=== PATIENT | male | born 1985 | race Two or more races ===

== ENCOUNTER 2018-11-20 21:42 | Emergency (ER) | payer SELFPAY ==
[~2018-11-20] VITALS: Ht 177.8 cm; Wt 74.8 kg
[2018-11-20] MEDS ORDERED: ADVIL200 M2 ORAL (21:54)
[2018-11-20 21:59] VITALS: BP 109/51
--- NOTE | 2018-11-20 22:13 | Emergency Room Report ---
History of Present Illness General Chief Complaint: Fever Source: Patient Present Illness HPI Is a 33-year-old male with no past medical history. He presents with chief complaint of fever. He had fever on and off for the last 2 days. Also with nonproductive cough. [place] weak. His been taking Advil for this. No nausea no vomiting but decreased appetite. No diarrhea. He came in today because now her prior to arrival, fever spiked to 106. He took 2 Advil. He said fever broke cousin of it. No nausea no vomiting. Mild cough. Nonproductive in nature. Allergies: Coded Allergies: No Known Allergies (Unverified , 11/20/18) Patient History Past Medical History: none, see triage record, old chart reviewed Past Surgical History: none Pertinent Family History: none Social History: Denies: smoking Immunizations: other Reviewed Nursing Documentation: PMH: Agreed; PSxH: Agreed Nursing Documentation-PMH Past Medical History: No Stated History Review of Systems Constitutional: Reports: sweats, fever, malaise, weakness Eye: Denies: eye pain, blurred vision ENT: Denies: ear pain, nose congestion, throat swelling Respiratory: Reports: cough; Denies: shortness of breath Cardiovascular: Denies: chest pain, palpitations Gastrointestinal: Denies: abdominal pain, diarrhea, nausea, vomiting Musculoskeletal: Denies: back pain, joint pain Skin: Denies: rash Neurological: Denies: headache, numbness Endocrine: Denies: increased thirst, increased urine Hematologic/Lymphatic: Denies: easy bruising All Other Systems: negative except mentioned in HPI Physical Exam Vital Signs Date Time Temp Pulse Resp B/P (MAP) Pulse Ox O2 Delivery O2 Flow Rate FiO2 11/20/18 21:49 100.2 106 19 109/51 96 Room Air vitals with fever Sp02 EP Interpretation: reviewed, normal General Appearance: well appearing, no apparent distress, alert Head: normocephalic, atraumatic Eyes: bilateral eye PERRL, bilateral eye EOMI ENT: hearing grossly normal, normal pharynx Neck: full range of motion, supple, no meningismus Respiratory: chest non-tender, lungs clear, normal breath sounds Cardiovascular #1: regular rate, rhythm, no murmur Gastrointestinal: normal bowel sounds, non tender, no mass, no organomegaly, no bruit, non-distended Musculoskeletal: back normal, gait/station normal, normal range of motion Psychiatric: mood/affect normal Skin: warm/dry Medical Decision Making Diagnostic Impression: Primary Impression: Influenza A ER Course Patient presents with fever and myalgia for lasts 48 hours. Labs unremarkable except for influenza. Patient felt better now. No evidence of bacterial infection. Notice any sepsis or pneumonia. He is otherwise healthy no other risk factor. He is outside the window for Tamiflu. Chest X-Ray Diagnostic Results Chest X-Ray Diagnostic Results : Chest X-Ray Ordered: Yes Indication: Shortness of Breath EP Interpretation: Yes Interpretation: no consolidation, no effusion, no pneumothorax Impression: No acute disease Electronically Signed by: Wilber Yates MD Last Vital Signs Date Time Temp Pulse Resp B/P (MAP) Pulse Ox O2 Delivery O2 Flow Rate FiO2 11/20/18 21:59 100.2 19 109/51 96 Room Air 11/20/18 21:59 106 Status: improved Disposition: HOME, SELF-CARE Condition: Stable Scripts Oseltamivir Phosphate (Tamiflu) 75 Mg Capsule 75 MG ORAL TWICE A DAY, #10 CAP Prov: Wilber Yates MD 11/20/18 Additional Instructions: Increase fluids. Continue with ibuprofen for fever. Follow-up with your doctor in 7 days. Return if symptom worsen. Wilber Yates MD Nov 20, 2018 22:13
--- NOTE | 2018-11-20 22:27 | NUR ---
ED Nurse Note: PT has been recived from [facility].
--- NOTE | 2018-11-20 22:28 | NUR ---
ED Nurse Note: PT states that he has been having a fever for the past two days. his took an oral temp today prior to ER arrival of 106 F. upon reassesment of oral temp, is 99.2 F. pt is alert and oriented times 4 and is able to ambualte. vital signs are steady.
[2018-11-20 22:42] VITALS: BP 113/63
[2018-11-20 22:51] LABS: APPEARANCE,URINE CLEAR; BASOPHILS % (AUTO) 1.4 % (0.0-2.0); BILIRUBIN, URINE NEGATIVE (NEGATIVE); GLUCOSE, URINE (UA) NEGATIVE (NEGATIVE); HEMATOCRIT 40.5 % (42.0-52.0); KETONES,URINE 4+ (NEGATIVE); LEUKOCYTE ESTERASE ,URINE 1+ (NEGATIVE); LYMPHOCYTES % (AUTO) 17.8 % (20.0-45.0); MEAN CORPUSCULAR VOLUME 88 FL (80-99); MONOCYTES % (AUTO) 9.2 % (1.0-10.0); NEUTROPHILS % (AUTO) 71.6 % (45.0-75.0); NITRITE,URINE NEGATIVE (NEGATIVE); PH,URINE 6 (4.5-8.0); PLATELET COUNT 158 K/UL (150-450); PROTEIN,URINE 2+ (NEGATIVE); RED BLOOD COUNT 4.62 M/UL (4.70-6.10); RED CELL DISTRIBUTION WIDTH 11.8 % (11.6-14.8); UROBILINOGEN,URINE 1 MG/DL (0.0-1.0); WHITE BLOOD COUNT 6.2 K/UL (4.8-10.8)
[2018-11-20 22:55] LABS: COLOR,URINE YELLOW
[2018-11-20 23:02] LABS: ANION GAP 13 mmol/L (5-15); BLOOD UREA NITROGEN 16 mg/dL (7-18); CALCIUM 9.4 MG/DL (8.5-10.1); CARBON DIOXIDE 25 MMOL/L (21-32); CHLORIDE 99 MMOL/L (98-107); CREATININE 0.9 MG/DL (0.55-1.30); POTASSIUM 3.7 MMOL/L (3.5-5.1); SODIUM 137 MMOL/L (136-145)
[2018-11-20 23:16] LABS: ALANINE AMINOTRANSFERASE 57 U/L (12-78); ALBUMIN 4.1 G/DL (3.4-5.0); ALBUMIN/GLOBULIN RATIO 0.9 (1.0-2.7); ALKALINE PHOSPHATASE 93 U/L (46-116); ASPARTATE AMINO TRANSFERASE 274 U/L (15-37); BILIRUBIN,TOTAL 0.7 MG/DL (0.2-1.0)
[2018-11-20] MEDS ORDERED: TAMIFLU75 MG ORAL (23:22)
[2018-11-20 23:25] LABS: CREATINE KINASE 17600 U/L (26-308)
[2018-11-20] MEDS ORDERED: Ketorolac 30mg Inj IV ONE (23:30)
[2018-11-20] MEDS ORDERED: Dexamethasone 4mg/ml vial IVP ONE (23:30)
[2018-11-20 23:38] VITALS: BP 122/74
--- NOTE | 2018-11-20 23:40 | NUR ---
ER DISCHARGE NOTE: Patient is cleared to be discharged per ERMD, pt is aox4, on room air, with stable vital signs. pt was given dc and prescription instructions, pt was able to verbalize understanding, pt id band and iv site removed without complications. pt is able to ambulate with steady gait. pt took all belongings.
== END 2018-11-20 23:41 | disposition home or self-care (01) ==
LOC: EMR 22:08
DX: J10.1 Influenza due to other identified influenza virus with other respiratory manifestations (principal); R06.02 Shortness of breath
CPT/HCPCS: 36415; 71045; 80053; 81003; 82550; 83605; 84484; 85025; 86710; 87040; 96361; 96374; 96375; 99284; J1100; J1885